=== PATIENT | male | born 1990 | race Caucasian/White ===

== ENCOUNTER 2020-06-10 14:23 | Emergency (ER) | payer MEDICAID, SELFPAY ==
[2020-06-10 14:29] VITALS: BP 146/82; PULSE 74; RESP 18; TEMP 37.2; O2SAT 97; BMI 28.3
--- NOTE | 2020-06-10 15:08 | ED_ITS ---
HPI - Dental/Oral General Chief complaint: Dental/Oral Stated complaint: DENTAL PAIN Time Seen by Provider: 06/10/20 15:07 History of Present Illness HPI Narrative: Patient complains of left upper dental pain for several days, no fever no chills no difficulty breathing or swelling Related Data Previous Rx's Medication Instructions Recorded amoxicillin-pot clavulanate 1 tab PO BID #14 tab 06/10/20 [Augmentin] hydrocodone-acetaminophen 1 tab PO Q6H PRN #7 tab 06/10/20 ibuprofen 600 mg PO Q6H PRN #20 tab 06/10/20 Allergies Allergy/AdvReac Type Severity Reaction Status Date / Time No Known Allergies Allergy Verified 06/10/20 15:12 Review of Systems Review of Systems: Positive for left upper dental pain Negatives are no fever no chills no dizziness no difficulty breathing no difficulty swallowing no rash Yes all other systems are reviewed and are n egative [facility] [place] Past Medical History Source: nursing notes reviewed Medical History (Updated 06/10/20 @ 15:13 by CHINEDU Reynolds) No known health problems Social History Social History Advance Directives: No Advance Directives Information Provided: No Physical Exam Vital Signs: Vital Signs: Last Vital Signs Temp 99.0 F 06/10/20 14:29 Pulse 74 06/10/20 14:29 Resp 18 06/10/20 14:29 BP 146/82 H 06/10/20 14:29 Pulse Ox 97 06/10/20 14:29 Body Mass Index 28.3 General appearance is no acute distress, comp and cooperative The dental exam there is a left upper incisor that is tender when tapped and decayed, there is no fluctuant come abscess, no swelling under the tongue no trismus no difficulty breathing or swallowing The pharynx is clear mucous membranes are moist Neck supple Respiratory no distress Skin no rash Extremities full range of motion x4 Course Course Course Narrative: Patient is treated with analgesics and antibiotic in referred to dental clinics Discharge Plan Discharge Clinical Impression: Dental caries Patient Disposition: Home, Self-Care Additional Instructions: Follow with dentist Return any concerns Prescriptions: New hydrocodone-acetaminophen 5-325 mg tablet 1 tab PO Q6H PRN (Reason: pain) Qty: 7 RF: 0 amoxicillin-pot clavulanate [Augmentin] 875-125 mg tablet 1 tab PO BID Qty: 14 RF: 0 ibuprofen 600 mg tablet 600 mg PO Q6H PRN (Reason: pain) Qty: 20 RF: 0
== END 2020-06-10 15:21 | disposition home or self-care (01) ==
PROVIDERS: Emergency Provider Emergency Medicine
DX: K02.9 Dental caries, unspecified (principal); K08.89 Other specified disorders of teeth and supporting structures
CPT/HCPCS: 99283

== ENCOUNTER 2020-09-02 12:51 | Emergency (ER) | payer MEDICAID, SELFPAY ==
[2020-09-02 13:22] VITALS: BP 130/76; PULSE 75; RESP 18; TEMP 36.6; O2SAT 98; BMI 29.1
--- NOTE | 2020-09-02 13:45 | ED.GENADULT ---
HPI - General Adult General Chief complaint: Skin/Abscess/Foreign Body Stated complaint: ABSCESS ON L SIDE Time Seen by Provider: 09/02/20 13:43 Source: patient Limitations: no limitations History of Present Illness HPI narrative: This is a 29-year-old male who complains of an area of redness and soreness on his left lateral chest toward his back, that he 1st noticed 3 days ago. The patient thought he might have been bitten by spider. He denies any fever. He has not noted any drainage. He has been applying warm compresses. Pain is mild, not worse with movement. Related Data Previous Rx's Medication Instructions Recorded amoxicillin-pot clavulanate 1 tab PO BID #14 tab 06/10/20 [Augmentin] amoxicillin-pot clavulanate 1 tab PO Q12H 7 Days #14 tab 06/10/20 [Augmentin] hydrocodone-acetaminophen 1 tab PO Q6H PRN #7 tab 06/10/20 hydrocodone-acetaminophen 1 tab PO Q6H PRN #7 tab 06/10/20 ibuprofen 600 mg PO Q6H PRN #20 tab 06/10/20 ibuprofen 600 mg PO Q6H PRN #20 tab 06/10/20 sulfamethoxazole-trimethoprim 1 tab PO BID #14 tab 09/02/20 [Bactrim DS] Allergies Allergy/AdvReac Type Severity Reaction Status Date / Time No Known Allergies Allergy Verified 06/10/20 15:12 Review of Systems Constitutional: Constitutional: Denies fever(s) Integumentary/Breasts: Skin/Breast: Reports furuncle PMFSH Past Medical History Medical History (Updated 09/02/20 @ 14:00 by Ronak Donohue MD) No known health problems Social History Social History Advance Directives: No Advance Directives Information Provided: No Physical Exam Vital Signs: Vital Signs: Last Vital Signs Temp 97.8 F 09/02/20 13:22 Pulse 75 09/02/20 13:22 Resp 18 09/02/20 13:22 BP 130/76 09/02/20 13:22 Pulse Ox 98 09/02/20 13:22 Body Mass Index 29.1 Const: General: cooperative and healthy appearing HENMT: Head: Yes normal to inspection Eyes: General: appearance normal, both eyes and all related structures Resp: Effort & Inspection: normal respiratory effort Auscultation: clear to auscultation bilaterally Cardio: Rate: regular rate Rhythm: regular rhythm Heart sounds: S1 normal heart sound present and S2 normal heart sound present Skin: Lesions: other (Left posterior lateral chest with approximately 3 cm area of erythema with ) Rashes: other (Focal induration, no fluctuance, no drainage) Medical Decision Making MDM Narrative Medical decision making narrative: Patient was offered incision and drainage or needle aspiration, explained to him that he could have small amount of pus there which should be drained and that healing but likely occur more rapidly of drainage were done. Patient refused, stated he would take antibiotics and apply warm compresses, return if there is no improvement. Discharge Plan Discharge Clinical Impression: Abscess of skin or subcutaneous tissue Patient Disposition: Home, Self-Care Instructions: Abscess (ED) Additional Instructions: Apply warm compresses to the area of infection for 15 minutes every 3-4 hours. Take the antibiotics as prescribed. Return for any worsened symptoms such as increased redness or swelling, fever Prescriptions: New sulfamethoxazole-trimethoprim [Bactrim DS] 800-160 mg tablet 1 tab PO BID Qty: 14 RF: 0 No Action hydrocodone-acetaminophen 5-325 mg tablet 1 tab PO Q6H PRN (Reason: pain) Qty: 7 RF: 0 amoxicillin-pot clavulanate [Augmentin] 875-125 mg tablet 1 tab PO BID Qty: 14 RF: 0 ibuprofen 600 mg tablet 600 mg PO Q6H PRN (Reason: pain) Qty: 20 RF: 0 amoxicillin-pot clavulanate [Augmentin] 875-125 mg tablet 1 tab PO Q12H 7 Days Qty: 14 RF: 0 ibuprofen 600 mg tablet 600 mg PO Q6H PRN (Reason: pain) Qty: 20 RF: 0 hydrocodone-acetaminophen 5-325 mg tablet 1 tab PO Q6H PRN (Reason: pain) Qty: 7 RF: 0 Interventions: ED Discharge Assessment Last Done: 09/02/20 14:10 Discharge Date/Time: 09/02/20 14:11
== END 2020-09-02 14:11 | disposition home or self-care (01) ==
PROVIDERS: Emergency Provider Emergency Medicine
DX: L02.213 Cutaneous abscess of chest wall (principal)
CPT/HCPCS: 99283